=== PATIENT | male | born 1965 | race Two or more races ===

== ENCOUNTER 2025-01-29 11:41 | Emergency (ER) | payer OTHER ==
[~2025-01-29] VITALS: Ht 162.6 cm; Wt 89.5 kg
--- NOTE | 2025-01-29 12:21 | ED.PDOC ---
Musculoskeletal HPI Comments 59 y/o M, presents to the ED for CC of lower extremity swelling. Patient states, he has been experiencing right-lower leg pain with associated swelling [id number]. Patient reports, that he recently had a right inguinal hernia repair on (12/24/24) at [facility] and then symptoms shortly commenced after. Patient denies chest pain, shortness of breath, weakness, or fever. No other associated symptoms, modifiers, recent injuries or sick contacts are present at this time. Chief Complaint: Lower Extremity Time Seen by MD: 12:35 Reviewed Notes: Nurses Notes, Medications, Allergies Allergies: Coded Allergies: NO KNOWN ALLERGIES (Unverified , 01/29/25) Information Source: Patient, Relative Mode of Arrival: Ambulatory Location: Right Extremity Location: Leg Timing: Weeks Prehospital treatment: None Severity: Moderate Able to Move Extremity: Yes Bear Weight: Fully Pain: Moderate Mechanism: Spontaneous Circumstances: Spontaneous Onset of Symptoms: Spontaneous Symptoms: Swelling, Pain DVT Risk Factors: NONE Associated signs and symptoms: Leg pain Past Medical History PAST MEDICAL HISTORY: Denies Surgical History: Hernia Repair Family History Family History: Unknown Social History Smoker: Non-Smoker Alcohol: Denies ETOH Use Drugs: Denies Drug Use Lives In: Home Constitutional: denies: chills, diaphoresis, fatigue, fever, malaise, sweats, weakness, others EENTM: denies: blurred vision, double vision, ear bleeding, ear discharge, ear drainage, ear pain, ear ringing, eye pain, eye redness, hearing loss, mouth pain, mouth swelling, nasal discharge, nose bleeding, nose congestion, nose pain, photophobia, tearing, throat pain, throat swelling, voice changes, others Respiratory: denies: cough, hemoptysis, orthopnea, SOB at rest, shortness of breath, SOB with excertion, stridor, wheezing, others Cardiovascular: denies: chest pain, dizzy spells, diaphoresis, Dyspnea on exertion, edema, irregular heart beat, left arm pain, lightheadedness, palpitations, PND, syncope, others Gastrointestinal: denies: abdomen distended, abdominal pain, blood streaked bowels, constipated, diarrhea, dysphagia, difficulty swallowing, hematemesis, m jodee, nausea, poor appetite, poor fluid intake, rectal bleeding, rectal pain, vomiting, others Genitourinary: denies: burning, dysuria, flank pain, frequency, hematuria, incontinence, penile discharge, penile sore, pain, testicle pain, testicle swelling, urgency, others Neurological: denies: dizziness, fainting, headache, left sided numbness, left sided weakness, numbness, paresthesia, pre-existing deficit, right sided numbness, right sided weakness, seizure, speech problems, tingling, tremors, weakness, others Musculoskeletal: reports: others (right leg swelling); denies: back pain, gout, joint pain, joint swelling, muscle pain, muscle stiffness, neck pain Integumetry: denies: bruises, change in color, change in hair/nails, dryness, laceration, lesions, lumps, rash, wounds, others Allergic/Immunocompromised: denies: Difficulty Healing, Frequent Infections, Hives, Itching, others Hematologic/Lymphatic: denies: anemia, blood clots, easy bleeding, easy bruising, swollen glands, others Endocrine: denies: excessive hunger, excessive sweating, excessive thirst, excessive urination, flushing, intolerance to cold, intolerance to heat, unexplained weight gain, unexplained weight loss, others Psychiatric: denies: anxiety, bipolar disorder, depression, hopeless, panic disorder, schizophrenia, sleepless, suicidal, others All Other Systems: Reviewed and Negative Physical Exam General Appearance: No Apparent Distress, Normal HEENT: Normal ENT Inspection, Pharynx Normal Neck: Full Range of Motion, Non-Tender, Normal, Normal Inspection Respiratory: Chest Non-Tender, Lungs Clear, No Accessory Muscle Use, No Respiratory Distress, Normal Breath Sounds Cardiovascular: No Edema, No Murmur, No Gallop, Normal Peripheral Pulses, Regular Rate/Rhythm Breast Exam: Deferred Gastrointestinal: No Organomegaly, Non Tender, No Pulsatile Mass, Normal Bowel Sounds, Soft Genitalia: Deferred Pelvic: Deferred Rectal: Deferred Extremities: Leg edema (right), No calf tenderness, Normal capillary refill, Normal inspection, Normal range of motion, Non-tender Musculoskeletal : Apperance: Normal Neurologic: Alert, 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 Was a procedure done?: No Differential Diagnosis EXT Differential Diagnosis: Deep Vein Thrombosis, Hernia X-Ray, Labs, Meds, VS Vital Signs Date Time Temp Pulse Resp B/P (MAP) Pulse Ox O2 Delivery O2 Flow Rate FiO2 01/29/25 15:58 97 Room Air* 0 21 01/29/25 15:53 98.8 65 17 122/75 (91) 97 98.8 01/29/25 11:43 98.4 83 20 140/75 95 98.4 Lab Test 01/29/25 13:49 Range/Units White Blood Count 6.9 4.4-10.8 10^3/uL Red Blood Count 4.07 L 4.5-5.90 10^6/uL Hemoglobin 12.6 L 13.5-17.5 g/dL Hematocrit 37.9 L 41.0-53.0 % Mean Corpuscular Volume 93.1 80.0-100.0 fL Mean Corpuscular Hemoglobin 30.8 28.0-32.0 pg Mean Corpuscular Hemoglobin Concent 33.1 32.0-36.0 g/dL Red Cell Distribution Width 13.8 11.8-14.3 % Platelet Count 255 140-450 10^3/uL Mean Platelet Volume 8.1 6.9-10.8 fL Neutrophils (%) (Auto) 52.7 37.0-80.0 % Lymphocytes (%) (Auto) 33.5 10.0-50.0 % Monocytes (%) (Auto) 8.2 0.0-12.0 % Eosinophils (%) (Auto) 5.0 0.0-7.0 % Basophils (%) (Auto) 0.6 0.0-2.0 % Neutrophils # (Auto) 3.6 1.6-8.6 10 ^3/uL Lymphocytes # (Auto) 2.3 0.4-5.4 10 ^3/uL Monocytes # (Auto) 0.6 0-1.3 10 ^3/uL Eosinophils # (Auto) 0.3 0-0.8 10 ^3/uL Basophils # (Auto) 0 0-0.2 10 ^3/uL Nucleated Red Blood Cells 0.1 % Prothrombin Time 11.1 9.3-11.8 sec Prothrombin Time INR 1.05 0.9-1.15 Activated Partial Thromboplast Time 25.9 24.5-34.5 SEC D-Dimer, Quantitative 8.10 H 0.0-0.49 mg/L FEU Sodium Level 139 136-145 mmol/L Potassium Level 4.0 3.5-5.1 mmol/L Chloride Level 103 98-107 mmol/L Carbon Dioxide Level 26 20-31 mmol/L Anion Gap 10 5-15 Blood Urea Nitrogen 13 9-23 mg/dL Creatinine 0.88 0.700-1.30 mg/dL Glomerular Filtration Rate Calc 100 >90 mL/min BUN/Creatinine Ratio 14.8 10.0-20.0 Serum Glucose 91 74-106 mg/dL Calcium Level 9.1 8.7-10.4 mg/dL Time of 1ST Reevaluation: 13:05 Reevaluation 1ST: Unchanged Patient Education/Counseling: Diagnosis, Treatment Family Education/Counseling: Diagnosis, Treatment Departure 1 Departure Time of Disposition: 16:26 (Patient with an extensive right lower extremity thrombus. Likely occurred postsurgical in nature. We will empirically cover patient with heparin and admit patient for further workup. Consulted radiology and they will evaluate the patient in the morning.) Impression: Primary Impression: Right leg DVT Qualified Codes: I82.421 - Acute embolism and thrombosis of right iliac vein Additional Impression: Right leg pain Disposition: ADMITTED INPATIENT Admit to: Med Surg Condition: Guarded Critical Care Note Critical Care Time?: Yes Critical care comment: Concern for extensive DVT requiring thrombectomy Authorized and Performed by: Martin Remy MD Total critical care time: Approximately 37 minutes Due to a high probability of clinically significant, life threatening deterioration, the patient required my highest level of preparedness to intervene emergently and I personally spent this critical care time directly and personally managing the patient. This critical care time included obtaining a history; examining the patient; pulse oximetry; ordering and review of studies; arranging urgent treatment with development of a management plan; evaluation of patient's response to treatment; frequent reassessment; and, discussions with other providers. This critical care time was performed to assess and manage the high probability of imminent, life-threatening deterioration that could result in multi-organ failure. It was exclusive of separately billable procedures and treating other patients and teaching time. Please see my other sections and the rest of the note for further information on patient assessment and treatment. Stability Stability form required: No Heart Score Heart Score: Heart Score Response (Comments) Value History N/A 0 EKG N/A 0 Age N/A 0 Risk Factors N/A 0 Troponin N/A 0 Total 0 I personally scribed for MARTIN REMY MD ([email or web address] on 01/29/25 at 12:21. Electronically submitted by Karina Gillette ([email or web address]). I personally scribed for MARTIN REMY MD ([email or web address]) on 01/29/25 at 13:11. Electronically submitted by Karina Gillette ([email or web address]). I personally scribed for MARTIN REMY MD ([email or web address]) on 01/29/25 at 13:36. Electronically submitted by Karina Gillette ([email or web address]). MARTIN ERMY MD Jan 29, 2025 12:21
[2025-01-29 14:08] LABS: Hematocrit 37.9 % (41.0-53.0); Hemoglobin 12.6 g/dL (13.5-17.5); Mean Corpuscular Hemoglobin 30.8 pg (28.0-32.0); Mean Corpuscular Volume 93.1 fL (80.0-100.0); Nucleated Red Blood Cells % 0.1 %
[2025-01-29 14:12] LABS: Chloride 103 mmol/L (98-107); Potassium 4.0 mmol/L (3.5-5.1); Sodium 139 mmol/L (136-145)
[2025-01-29 14:13] LABS: Anion Gap 10 (5-15); Calcium 9.1 mg/dL (8.7-10.4); Carbon Dioxide 26 mmol/L (20-31)
[2025-01-29 14:18] LABS: BUN/Creatinine Ratio 14.8 (10.0-20.0); Blood Urea Nitrogen 13 mg/dL (9-23); Glucose 91 mg/dL (74-106)
[2025-01-29] MEDS ORDERED: HEPARIN SODIUM (PORCINE) 5000 UNITS/ML 1ML VIAL IV ONE (15:00)
[2025-01-29 15:45] LABS: INR 1.05 (0.9-1.15); Partial Thromboplastin Time 25.9 SEC (24.5-34.5); Prothrombin Time 11.1 sec (9.3-11.8)
[2025-01-29 15:53] VITALS: BP 122/75; PULSE 65; RESP 17; TEMP 98.8
[2025-01-29 15:58] VITALS: O2SAT 97
[2025-01-29] MEDS ORDERED: HEPARIN DRIP/D5W 100UNITS/ML 250 ML IV SCH (16:16)
[2025-01-29] MEDS ORDERED: APIX5TAB PO (16:46)
--- NOTE | 2025-01-29 17:07 | DVHDS2 ---
New Physician D'charge PN Admitting Diagnosis Admitting Diagnosis RLE DVT Discharge Diagnosis RLE DVT Operations or Procedures none Reason(s) For Hospitalization Surgery Hospital Course 59 M who comes to ER with RLE swelling and pain over the last 3 weeks. He states beginning of December he had a R inguinal hernia surgery and thereafter his RLE started to become swollen and painful. When he came to the ER his labs were nml and patient had a RLE venous US done and it showed an extensive RLE DVT. The ER provider had consulted IR and they recommended admission, IV heparin gtt for anticoagulation and evaluation in AM for possible thrombectomy. The patient and his both are [place] speaking thus i had the rn relief charge translate to them in [place] the findings of the RLE venous US. They were explained that the patient had a large blood clot or "DVT" in his R leg. They were explained the need for an IV blood thinner to be infused here in the hospital and evaluation for clot removal or thrombectomy procedure as recommended by myself and interventional radiology. He was explained that there is a chance the clot or DVT can break off and embolize to his lungs causing a PE, cardiac arrest and . After this discussion He expressed that he wished to go home and did not want to stay and did not want to have any procedure done. He will be given a therapeutic dose of lovenox subq x1 here and he will also be given a prescription for full dose eliquis for acute RLE DVT which has been sent to his pharmacy on file. Patient will also have urgent PCP follow up along with outpt vascular surgery follow up. He was instructed to return to ER or call 911 should his symptoms worsen. HE is aware he can return at any time should he decide to come back to the ER. At this time he wishes to go home with oral anticoagulation and does not want to stay nor does he want any type or procedure done. [facility] to arrange for all outpt follow up. Treatment Plan Discharge Condition of Discharge Good Disposition Home Discharge Instructions Diet: Consistent carbohydrate, Cardiac 2g Na,low cholest Activity: No Restrictions, As Tolerated Medications: see med sheet Follow Up Care Follow Up/Referral: pcp vascular surgery Discharge Statement: "Patient was advised to return to the ER or call 911 if any headaches, dizziness, shortness of breath, chest pain, abdominal pain, bleeding, fevers, or worsening of medical condition. Patient was counseled about treatment plan, medications, possible side effects, patientverbalized understanding. All questions were answered to the best of my ability. This discharge took greater then 30 minutes in planning, reviewing documentation, counseling the patient, and discussing with other team members." ADY MILLS MD Jan 29, 2025 17:07
[2025-01-29] MEDS: ENOXAPARIN SOD 100 MG/1 ML SYRINGE SC ONE (17:33)
--- NOTE | 2025-01-29 17:44 | DVH ---
Technique: Real-time ultrasound imaging, with color Doppler and compression of the right common femo ral vein, femoral vein, greater saphenous vein, and popliteal vein. Indication: right leg pain Comparison: None Findings: Thrombus is partially occlusive in the right iliac vein. Right common femoral vein contains partially occlusive thrombus. Occlusive thrombus within the right superficial femoral, popliteal, posterior ti bial veins Impression: Extensive right lower extremity DVT involving the iliofemoral common femoral popliteal venous circula tion including occlusive deep vein thrombosis within the right superficial femoral , popliteal, poste rior tibial veins.
== END 2025-01-29 17:35 | disposition home or self-care (01) ==
LOC: ER 11:41
DX: I82.441 Acute embolism and thrombosis of right tibial vein (principal); I82.431 Acute embolism and thrombosis of right popliteal vein; M79.661 Pain in right lower leg; Z79.01 Long term (current) use of anticoagulants; Z98.890 Other specified postprocedural states
CPT/HCPCS: 36415; 80048; 85025; 85379; 85610; 85730; 93971; 96372; 99285; J1650

== ENCOUNTER 2025-03-21 10:58 | Emergency (ER) | payer OTHER ==
[~2025-03-21] VITALS: Ht 162.6 cm; Wt 82.9 kg
[~2025-03-21 10:58] MED LIST: APIX5TAB PO
--- NOTE | 2025-03-21 13:18 | ED.PDOC ---
HPI Comments This is a 60 year-old male who presents to the ED with a chief complaint of SOB, L sided chest pain, and dizziness for X3 days. Patient reports a Hx of pre-DM. Patient reports taking Eliquis over the past X6 weeks. Patient has no further complaints at this time and denies headache, N/V/D, palpitations, cough, fever, or chills. Chief Complaint: Shortness of Breath Time Seen by MD: 12:34 Reviewed Notes: Medications, Allergies Allergies: Coded Allergies: NO KNOWN ALLERGIES (Unverified , 01/29/25) Home Meds Active Scripts Apixaban Base (ELIQUIS) 5 Mg Tab, 10 MG PO BID for 7 Days, #14 TAB 10MG BID X 7 DAYS THEN 5MG PO BID FOR AT LEAST 6 MONTHS FOR DVT/PE TREATMENT Prov:ADY MILLS MD 01/29/25 Apixaban Base (ELIQUIS) 5 Mg Tab, 5 MG PO BID for 30 Days, #60 TAB 1 Refill Prov:ADY MILLS MD 01/29/25 Information Source: Patient Mode of Arrival: Ambulatory Severity: Moderate Duration: Since onset Prehospital treatment: None Location: Chest (L) Onset: At Rest, With Light Exertion, With Heavy Exertion Cardiac Risk Factors: Diabetes Past Medical History PAST MEDICAL HISTORY: DM Surgical History: Hernia Repair Family History Family History: Unknown Social History Smoker: Non-Smoker Alcohol: Denies ETOH Use Drugs: Denies Drug Use Lives In: Home Constitutional: denies: chills, diaphoresis, fatigue, fever, malaise, sweats, weakness, others EENTM: denies: blurred vision, double vision, ear bleeding, ear discharge, ear drainage, ear pain, ear ringing, eye pain, eye redness, hearing loss, mouth pain, mouth swelling, nasal discharge, nose bleeding, nose congestion, nose pain, photophobia, tearing, throat pain, throat swelling, voice changes, others Respiratory: reports: SOB at rest, shortness of breath, SOB with excertion; denies: cough, hemoptysis, orthopnea, stridor, wheezing, others Cardiovascular: reports: chest pain; denies: dizzy spells, diaphoresis, Dyspnea on exertion, edema, irregular heart beat, left arm pain, lightheadedness, palpitations, PND, syncope, others Gastrointestinal: denies: abdomen distended, abdominal pain, blood streaked bowels, constipated, diarrhea, dysphagia, difficulty swallowing, hematemesis, melena, nausea, poor appetite, poor fluid intake, rectal bleeding, rectal pain, vomiting, others Genitourinary: denies: burning, dysuria, flank pain, frequency, hematuria, incontinence, penile discharge, penile sore, pain, testicle pain, testicle swelling, urgency, others Neurological: reports: dizziness; denies: fainting, headache, left sided numbness, left sided weakness, numbness, paresthesia, pre-existing deficit, right sided numbness, right sided weakness, seizure, speech problems, tingling, tremors, weakness, others Musculoskeletal: denies: back pain, gout, joint pain, joint swelling, muscle pain, muscle stiffness, neck pain, others Integumetry: denies: bruises, change in color, change in hair/nails, dryness, laceration, lesions, lumps, rash, wounds, others Allergic/Immunocompromised: denies: Difficulty Healing, Frequent Infections, Hives, Itching, others Hematologic/Lymphatic: denies: anemia, blood clots, easy bleeding, easy bruising, swollen glands, others Endocrine: denies: excessive hunger, excessive sweating, excessive thirst, excessive urination, flushing, intolerance to cold, intolerance to heat, unexplained weight gain, unexplained weight loss, others Psychiatric: denies: anxiety, bipolar disorder, depression, hopeless, panic disorder, schizophrenia, sleepless, suicidal, others All Other Systems: Reviewed and Negative Physical Exam General Appearance: Moderate Distress HEENT: Normal ENT Inspection, Pharynx Normal, TMs Normal Neck: Full Range of Motion, Non-Tender, Normal, Normal Inspection Respiratory: Chest Non-Tender, Lungs Clear, No Accessory Muscle Use, No Respiratory Distress, Normal Breath Sounds Cardiovascular: No Edema, No JVD, No Murmur, No Gallop, Normal Peripheral Pulses, Regular Rate/Rhythm Breast Exam: Deferred Gastrointestinal: No Organomegaly, Non Tender, No Pulsatile Mass, Normal Bowel Sounds, Soft Genitalia: Deferred Pelvic: Deferred Rectal: Deferred Extremities: No calf tenderness, Normal capillary refill, Normal inspection, Normal range of motion, Non-tender, No pedal edema Musculoskeletal : Apperance: Normal Neurologic: Alert, chief of staff II-XII nml as Tested, No Motor Deficits, Normal Affect, Normal Mood, No Sensory Deficits Cerebellar Function: Normal Reflexes: Normal Skin: Dry, Normal Color, Warm Peripheral Pulses: 3+ Radial (R), 3+ Radial (L) Lymphatic: No Adenopathy Was a procedure done? Was a procedure done?: No CP Differential Dx Differential Diagnosis: A-fib, A-Flutter, Angina, Anxiety / Panic Attack, Electrolyte Disorder Differential Diagnosis: HTN Essential Differential Diagnosis: Angina, Aortic dissection, Chest Wall Pain, Gastritis X-Ray, Labs, Meds, VS Vital Signs Date Time Temp Pulse Resp B/P (MAP) Pulse Ox O2 Delivery O2 Flow Rate FiO2 03/21/25 14:58 97.8 66 16 134/84 (101) 97 97.8 03/21/25 11:18 68 03/21/25 11:06 97.8 80 18 134/84 95 97.8 Patient alert. Came in for normal exam. No distress. Vitals stable. Lungs clear. No sign of distress. Moving all extremities pain He is on Eliquis for possible clot. No leg swelling. No shortness a breath. Saturation pristine on room air. Respiratory rate within normal limits. Heart rate within normal limits. Chest x-ray was not warranted because is lungs are clear on auscultation. Explained to the patient. Was told to follow up with his primary care physician. Was told to come back if there is any problem. Time of 1ST Reevaluation: 13:51 Reevaluation 1ST: Unchanged Patient Education/Counseling: Diagnosis, Treatment Family Education/Counseling: No Family Present SEPSIS Sepsis Screen Date sepsis recognized/suspect: Mar 21, 2025 Time Sepsis recognized/suspect: 1108 Recent Procedure: No On Antibiotic Therapy: No Respiratory Rate >20: No Heart Rate >90: No Temp<36 C (96.8 F) or >38.3 C: No SBP <90 or MAP <65 mmHG: No New Acute Mental Status Change: No Is the patient on CPAP, BIPAP,: No Physician Orders Electrocardigram (03/21/25 11:21) Vital Signs Date Time Temp Pulse Resp B/P (MAP) Pulse Ox O2 Delivery O2 Flow Rate FiO2 03/21/25 14:58 97.8 66 16 134/84 (101) 97 97.8 03/21/25 11:18 68 03/21/25 11:06 97.8 80 18 134/84 95 97.8 Departure 1 Departure Time of Disposition: 15:51 Impression: Primary Impression: Anxiety Disposition: 01 HOME / SELF CARE / HOMELESS Condition: Good Discharged With: Self Critical Care Note Critical Care Time?: No Stability Stability form required: No Heart Score Heart Score: Heart Score Response (Comments) Value History N/A 0 EKG Normal 0 Age 45-64 1 Risk Factors No known risk factors 0 Troponin N/A 0 Total 1 I personally scribed for BEATA ARANDA MD ([email or web address]) on 03/21/25 at 13:18. Electronically submitted by Brittni Call ([email or web address]). BEATA ARANDA MD Mar 21, 2025 13:18
[2025-03-21 17:04] VITALS: BP 153/90; PULSE 73; RESP 18; TEMP 97.9; O2SAT 96
--- NOTE | 2025-03-22 07:12 | ECG ---
[facility] Test Date: 2025-03-21 Test Time: 11:18:17 Pat Name: VALENTINE SCHMIDT Department: ED Room: Gender: M Syruper: KOFI : 1965 Requested By: BEATA ARANDA Order Number: [id number] Reading MD: Jac Garcia Measurements Intervals [place] Rate: 68 P: 40 IA: 104 QRS: 21 QRSD: 81 T: -4 QT: 407 QTc: 433 Interpretive Statements Sinus rhythm Short IA interval Low voltage, precordial leads Borderline T abnormalities, anterior leads Electronically Signed On 03-24-2025 15:00:58 PST by Jac Garcia Please click the below link to view image of tracing.
== END 2025-03-21 17:23 | disposition home or self-care (01) ==
LOC: ER 10:58
DX: F41.9 Anxiety disorder, unspecified (principal); E11.9 Type 2 diabetes mellitus without complications; Z79.899 Other long term (current) drug therapy; Z98.890 Other specified postprocedural states; Z79.01 Long term (current) use of anticoagulants
CPT/HCPCS: 93005